=== PATIENT | female | born 1975 | race Caucasian/White ===

== ENCOUNTER 2022-03-19 07:36 | Emergency (ER) | payer OTHER, SELFPAY ==
[2022-03-19 07:50] VITALS: BP 106/63; PULSE 70; RESP 14; TEMP 36.6; O2SAT 97
[2022-03-19] MEDS: cephALEXin 500 mg Capsule PO (07:55)
--- NOTE | 2022-03-19 07:56 | ED_ITS ---
HPI - Extremity Problem General: Stated complaint: Wants the pins in her hand looked at, surgury 02/28 Time Seen by Provider: 03/19/22 07:45 Source: patient Mode of arrival: ambulatory Limitations: no limitations History of Present Illness: 47-year-old female who had a boxer's fracture to the right hand had surgery done February 28 at [facility]. She had 2 pins placed she states she has had some slight erythema and drainage from one of the pins. She denies any fever she had some mild pain she rates a 3 out of 10 she sees her surgeon on Monday. Denies any worsening improving factors Associated symptoms: Deny chest pain, fever(s) or rash Review of Systems Const: Denies: fever(s), chills, body aches or change in appetite Eyes: Denies: blurry vision or eye discomfort ENMT: Denies: throat pain or dental pain Card: Denies: chest pain Resp: Denies: dyspnea GI: Denies: abdominal pain, nausea, vomiting or diarrhea : Denies: dysuria Musc: Reports: extremity pain Skin/Breast: Denies: rash Neuro: Denies: headache(s) Psych: Denies: depression Lui/Lymph: Denies: easy bruising All/Imm: Denies: urticaria PFSH ED PFSH: Medical History (Updated 03/19/22 @ 07:59 by Jackson Scott MD) No pertinent past medical history Social History (Updated 03/19/22 @ 07:59 by Jackson Scott MD) Substance/Drug Use: unknown Physical Exam Const: COMMON NORMALS: no acute distress, patient oriented x3 and healthy appearing HENMT: COMMON NORMALS: normocephalic and atraumatic HEAD & SCALP: normocephalic and atraumatic Eye: COMMON NORMALS: Equal, round and reactive pupils present and EOMs intact bilaterally PUPIL: Yes Equal, round and reactive pupils present Neck/C-Spine: COMMON NORMALS: full ROM and supple Chest: COMMONS NORMALS: normal inspection of the chest and normal palpation of entire chest wall Resp: COMMON NORMALS: normal respiratory effort, No retractions, No use of accessory muscles and clear to auscultation bilaterally AUSCULTATION: clear to auscultation bilaterally Cardio: COMMON NORMALS: regular rate, regular rhythm and No murmurs present (Cardio) RATE: regular rate RHYTHM: regular rhythm GI: COMMON NORMALS: Normal to inspection, nondistended, normoactive bowel sounds present, Soft to palpation, non-tender and no masses PALPATION: Yes Soft to palpation Extremity: COMMON NORMALS: full ROM NARRATIVE EXTREMITY EXAM: Some very mild erythema at right lateral hand she does have [address] with very minimal drainage at this time Neuro: COMMON NORMALS: patient oriented x3, moves all extremities and no focal motor deficits Psych: COMMON NORMALS: mental status grossly normal, Normal thought process present and cooperative THOUGHT PROCESS: Normal thought process present Skin: COMMON NORMALS: no rashes or lesions noted and no wounds GENERAL SKIN EXAM: no rashes or lesions noted MDM - Extremity (Nontraumatic) Medical Decision Making Patient presents here with some hand pain from a boxer's fracture she does have [address] some very mild erythematous she states she has had some drainage possibly mild infection will start on Keflex she sees her surgeon on Monday she is to follow-up within return if worsening Discharge Plan Discharge Patient Disposition: Home Condition: Stable Prescriptions: New cephalexin 500 mg capsule 500 mg PO TID 7 Days Qty: 21 0RF Discharge Orders: Discharge ED (Routine); Ordered 03/19/22 Ordered By: Jackson Scott Discharge Diet: Advance as tolerated Discharge Activity: Resume usual activity Patient Instructions: Boxer Fracture (ED) Coding Level of Care Code ED Package Center Supervisor for Russell Brennan
[2022-03-19 08:06] VITALS: BP 106/63; PULSE 70; RESP 14; TEMP 36.6; O2SAT 97
== END 2022-03-19 08:08 | disposition home or self-care (01) ==
PROVIDERS: Emergency Provider Emergency Medicine
DX: M79.641 Pain in right hand (principal)
CPT/HCPCS: 99283